=== PATIENT | female | born 1975 | race Two or more races ===

== ENCOUNTER 2022-04-11 07:48 | Outpatient (CLI) | payer OTHER | END 2022-04-11 08:05 | disposition home or self-care (01) | LOC: TOM 07:48 | PROVIDERS: ATTEND Surgery | DX: C19 Malignant neoplasm of rectosigmoid junction (principal) ==

== ENCOUNTER 2022-04-13 09:30 | Inpatient (IN) | payer OTHER ==
[~2022-04-13] VITALS: Ht 162.6 cm; Wt 62.6 kg
[2022-04-25] MEDS ORDERED: HYDROCORTISONE30 G4 (13:14)
[2022-04-25] MEDS ORDERED: STOOL SOFTENER240 MG (13:14)
[2022-04-28] MEDS ORDERED: PERCOCET 5-3251 EACH PO (07:32)
[2022-04-28] MEDS ORDERED: LEVSIN/SL0.125 MG SL (07:32)
[2022-04-28] MEDS ORDERED: INTESTINEX680 M1 PO (07:33)
== END 2022-04-28 13:54 | disposition home or self-care (01) | DRG 330 ==
LOC: EDUNIT# 09:30 → O/R 04-25 06:57 → SURG 04-25 11:00 → SURH 04-25 15:08
PROVIDERS: Obstetrics & Gynecology; ADMIT Surgery; ATTEND Surgery
PROC: 07TB4ZZ Resection of Mesenteric Lymphatic, Percutaneous Endoscopic Approach (ICD-10-PCS; 2022-04-25)
PROC: 0DJD8ZZ Inspection of Lower Intestinal Tract, Via Natural or Artificial Opening Endoscopic (ICD-10-PCS; 2022-04-25)
PROC: 0UT04ZZ Resection of Right Ovary, Percutaneous Endoscopic Approach (ICD-10-PCS; 2022-04-25)
PROC: 0DTN4ZZ Resection of Sigmoid Colon, Percutaneous Endoscopic Approach (ICD-10-PCS; principal; 2022-04-25 13:00)
PROC: 0DBP3ZZ Excision of Rectum, Percutaneous Approach (ICD-10-PCS; 2022-04-25 13:00)
DX: C19 Malignant neoplasm of rectosigmoid junction (principal); C79.82 Secondary malignant neoplasm of genital organs; N83.01 Follicular cyst of right ovary; Z20.822 Contact with and (suspected) exposure to COVID-19

== ENCOUNTER → 2022-05-26 10:42 | Outpatient (CLI) | payer OTHER ==
[~2022-05-26 10:42] MED LIST: HYDROCORTISONE30 G4; INTESTINEX680 M1 PO; LEVSIN/SL0.125 MG SL; PERCOCET 5-3251 EACH PO; STOOL SOFTENER240 MG
== END | disposition home or self-care (01) ==
LOC: LAB 10:42
PROVIDERS: ATTEND Radiology Diagnostic Radiology
DX: C19 Malignant neoplasm of rectosigmoid junction (principal)

== ENCOUNTER 2022-06-08 07:12 | Outpatient (CLI) | payer OTHER | END 2022-06-08 08:22 | disposition home or self-care (01) | LOC: TOM 07:12 | DX: C20 Malignant neoplasm of rectum (principal) ==

== ENCOUNTER 2023-02-14 08:35 | Outpatient (CLI) | payer OTHER | END 2023-02-14 08:48 | disposition home or self-care (01) | LOC: TOM 08:35 | DX: C18.7 Malignant neoplasm of sigmoid colon (principal) ==